=== PATIENT | male | born 1975 | race Caucasian/White ===

== ENCOUNTER 2017-06-23 18:30 | Emergency (ER) | payer BC ==
[~2017-06-23] VITALS: Ht 190.5 cm; Wt 100.4 kg
[2017-06-23] MEDS ORDERED: MEDROL DOSEPAK4 MG PO (22:48)
[2017-06-23] MEDS ORDERED: SKELAXIN800 MG PO (22:55)
[2017-06-23 23:06] VITALS: BP 141/100
== END 2017-06-23 23:07 | disposition home or self-care (01) ==
LOC: EME 18:30
DX: M51.16 Intervertebral disc disorders with radiculopathy, lumbar region (principal); M50.20 Other cervical disc displacement, unspecified cervical region; M51.24 Other intervertebral disc displacement, thoracic region; I10 Essential (primary) hypertension; E78.5 Hyperlipidemia, unspecified; Z87.442 Personal history of urinary calculi; F17.200 Nicotine dependence, unspecified, uncomplicated
CPT/HCPCS: 72110; 99281; 99284; J1885; J2930